=== PATIENT | male | born 1975 | race Caucasian/White ===

== ENCOUNTER 2022-09-04 14:40 | Emergency (ER) | payer OTHER ==
[~2022-09-04] VITALS: Ht 190.5 cm; Wt 127.0 kg
--- NOTE | 2022-09-04 16:20 | NUR ---
DR RIVERA SEEN PT FOR EVAL
[2022-09-04] MEDS ORDERED: HYDR-3976 PO (16:51)
--- NOTE | 2022-09-04 17:00 | NUR ---
TECH AT BEDSIDE FOR SPLINT APPLICATION; CRUTCH TRAINING PROVIDED TO PT.
[2022-09-04 17:18] VITALS: BP 142/83
--- NOTE | 2022-09-04 17:39 | NUR ---
Patient discharged to home in stable condition. Written and verbal after care instructions given. Patient verbalizes understanding of instruction.
== END 2022-09-04 17:39 | disposition home or self-care (01) ==
LOC: ER 14:44
DX: M21.962 Unspecified acquired deformity of left lower leg (principal); M25.472 Effusion, left ankle; Z79.899 Other long term (current) drug therapy
CPT/HCPCS: 73610-TC